=== PATIENT | male | born 1970 | race Caucasian/White ===

== ENCOUNTER 2020-03-26 08:28 | Outpatient (REF) | payer OTHER, SELFPAY | END 2020-03-26 08:29 | disposition home or self-care (01) | LOC: HO.HMGCLDS 08:28 | PROVIDERS: PCP Internal Medicine; Visit Provider Internal Medicine | DX: Z20.828 Contact with and (suspected) exposure to other viral communicable diseases (principal) | CPT/HCPCS: 87635 ==

== ENCOUNTER 2020-04-24 13:55 | Outpatient (REF) | payer OTHER, SELFPAY ==
[2020-04-24 16:58] LABS: Anion Gap 13 (12-20); Blood Urea Nitrogen 13 mg/dL (9-16); Calcium 9.2 mg/dL (8.4-10.2); Carbon Dioxide 28 mmol/L (22-29); Chloride 103 mmol/L (96-108); Estimated Glomerular Filt Rate > 60; Glucose Random 70 mg/dL (60-115); Potassium 4.7 mmol/l (3.3-5.1); Sodium 139 mmol/L (135-145)
== END 2020-04-24 13:56 | disposition home or self-care (01) ==
LOC: HO.HMGCLDS 13:55
PROVIDERS: PCP Internal Medicine; Visit Provider Internal Medicine
DX: Z00.01 Encounter for general adult medical examination with abnormal findings (principal); R79.89 Other specified abnormal findings of blood chemistry; I10 Essential (primary) hypertension
CPT/HCPCS: 80048

== ENCOUNTER 2021-01-04 11:51 | Outpatient (REF) | payer OTHER, SELFPAY ==
[2021-01-04 14:24] LABS: Alanine Aminotransferase 46 U/L (0-40); Albumin Level 4.2 g/dL (3.5-5.0); Alkaline Phosphatase 83 U/L (39-117); Anion Gap 14 (12-20); Aspartate Amino Transferase 29 U/L (5-37); Bilirubin Total 0.6 mg/dL (0.0-1.0); Blood Urea Nitrogen 12 mg/dL (9-16); Calcium 9.3 mg/dL (8.4-10.2); Carbon Dioxide 23 mmol/L (22-29); Chloride 107 mmol/L (96-108); Estimated Glomerular Filt Rate > 60; Glucose Random 150 mg/dL (60-115); Sodium 140 mmol/L (135-145); Total Protein 7.2 g/dL (6.5-8.0)
== END 2021-01-04 11:52 | disposition home or self-care (01) ==
LOC: HO.HMGCLDS 11:51
PROVIDERS: PCP Internal Medicine; Visit Provider Internal Medicine
DX: R79.89 Other specified abnormal findings of blood chemistry (principal); I10 Essential (primary) hypertension
CPT/HCPCS: 36415; 80053

== ENCOUNTER → 2021-01-22 08:41 | Outpatient (BNVA) | payer SELFPAY | PROVIDERS: PCP Internal Medicine | DX: Z02.1 Encounter for pre-employment examination (principal) ==

== ENCOUNTER 2021-02-20 11:15 | Outpatient (REF) | payer OTHER, SELFPAY ==
[2021-02-23 14:55] LABS: TS Negative Control Passed; TS Panel A 0; TS Panel B 0; TS Positive Control Passed; TSpotTB Negative (SeeBelow)
== END 2021-02-20 11:16 | disposition home or self-care (01) ==
LOC: HO.HMGCLDS 11:15
PROVIDERS: PCP Internal Medicine; Visit Provider Internal Medicine
DX: Z11.1 Encounter for screening for respiratory tuberculosis (principal)
CPT/HCPCS: 36415; 86481

== ENCOUNTER 2021-05-28 12:09 | Outpatient (REF) | payer OTHER, SELFPAY ==
[2021-05-28 14:22] LABS: Alanine Aminotransferase 62 U/L (0-40); Albumin Level 4.2 g/dL (3.5-5.0); Alkaline Phosphatase 97 U/L (39-117); Anion Gap 11 (12-20); Aspartate Amino Transferase 35 U/L (5-37); Bilirubin Total 0.4 mg/dL (0.0-1.0); Blood Urea Nitrogen 12 mg/dL (9-16); Calcium 9.6 mg/dL (8.4-10.2); Carbon Dioxide 27 mmol/L (22-29); Chloride 104 mmol/L (96-108); Estimated Glomerular Filt Rate > 60; Glucose Random 93 mg/dL (60-115); Potassium 4.2 mmol/L (3.3-5.1); Sodium 138 mmol/L (135-145); Total Protein 7.5 g/dL (6.5-8.0)
== END 2021-05-28 12:10 | disposition home or self-care (01) ==
LOC: HO.HMGCLDS 12:09
PROVIDERS: PCP Internal Medicine; Visit Provider Internal Medicine
DX: I10 Essential (primary) hypertension (principal); R79.89 Other specified abnormal findings of blood chemistry
CPT/HCPCS: 36415; 80053

== ENCOUNTER 2021-12-03 11:57 | Outpatient (REF) | payer OTHER, SELFPAY ==
[2021-12-03 13:42] LABS: MANUAL DIFF FLAG NO
[2021-12-03 13:56] LABS: Basophils Percent Auto 0.7 % (0-2); Eosinophils Absolute Auto 0.1 X10*3/uL (0.0-0.4); Eosinophils Percent Auto 1.3 % (0-4); Hemoglobin 15.5 g/dl (14.0-18.0); Imm Gran Abs Auto 0.02 X10*3/uL (0.00-0.03); Imm Gran Pct Auto 0.3 % (0.0-0.4); Lymphocytes Absolute Auto 1.9 X10*3/uL (1.2-4.9); Lymphocytes Percent Auto 31.5 % (20-40); Mean Corpuscular HGB Conc 33.7 g/dl (31.0-36.0); Mean Corpuscular Hemoglobin 30.3 pg (27.0-33.0); Mean Corpuscular Volume 89.8 fL (80.0-98.0); Mean Platelet Volume 11.1 fL (9.4-12.4); Monocytes Absolute Auto 0.4 X10*3/uL (0.1-1.2); Monocytes Percent Auto 6.6 % (2-11); Neutrophils Absolute Auto 3.5 x10*3/uL (2.0-8.3); Neutrophils Percent Auto 59.6 % (45-73); Platelet Count 289 X10*3/uL (160-400); Red Blood Count 5.12 X10*6/uL (4.60-5.80); White Blood Count 5.9 X10*3/uL (4.8-10.8)
[2021-12-03 14:06] LABS: Estimated Average Glucose 120 mg/dL; Hemoglobin A1c % 5.8 %
[2021-12-03 14:15] LABS: Alanine Aminotransferase 62 U/L (0-40); Albumin Level 4.1 g/dL (3.5-5.0); Alkaline Phosphatase 98 U/L (39-117); Anion Gap 12 (12-20); Aspartate Amino Transferase 36 U/L (5-37); Bilirubin Total 0.4 mg/dL (0.0-1.0); Blood Urea Nitrogen 11 mg/dL (9-16); Calcium 9.3 mg/dL (8.4-10.2); Carbon Dioxide 25 mmol/L (22-29); Chloride 107 mmol/L (96-108); Cholesterol 213 mg/dL; Estimated Glomerular Filt Rate > 60; Glucose Fasting 100 mg/dL (60-99); HDL Cholesterol 29 mg/dL; LDL Cholesterol Calculated 120 mg/dl; Potassium 4.5 mmol/L (3.3-5.1); Sodium 139 mmol/L (135-145); Total Protein 7.4 g/dL (6.5-8.0); Triglycerides 324 mg/dL
[2021-12-03 14:38] LABS: TSH reflex Free T4 1.23 uIU/mL (0.32-4.0)
== END 2021-12-03 11:58 | disposition home or self-care (01) ==
LOC: HO.HMGCLDS 11:57
PROVIDERS: PCP Internal Medicine; Visit Provider Internal Medicine
DX: Z00.01 Encounter for general adult medical examination with abnormal findings (principal); R94.5 Abnormal results of liver function studies; R79.89 Other specified abnormal findings of blood chemistry; I10 Essential (primary) hypertension; K42.9 Umbilical hernia without obstruction or gangrene; E66.09 Other obesity due to excess calories; R73.03 Prediabetes
CPT/HCPCS: 36415; 80053; 80061; 83036; 84443; 85025

== ENCOUNTER 2022-06-25 13:44 | Outpatient (REF) | payer OTHER, SELFPAY ==
[2022-06-25 16:53] LABS: Estimated Average Glucose 120 mg/dL; Hemoglobin A1c % 5.8 %
[2022-06-25 16:57] LABS: Alanine Aminotransferase 40 U/L (0-40); Alkaline Phosphatase 92 U/L (39-117); Anion Gap 10 (12-20); Aspartate Amino Transferase 23 U/L (5-37); Bilirubin Total 0.4 mg/dL (0.0-1.0); Blood Urea Nitrogen 14 mg/dL (9-16); Calcium 10.1 mg/dL (8.4-10.2); Carbon Dioxide 29 mmol/L (22-29); Chloride 107 mmol/L (96-108); Estimated Glomerular Filt Rate > 60; Glucose Random 131 mg/dL (60-115); Potassium 3.9 mmol/L (3.3-5.1); Sodium 142 mmol/L (135-145); Total Protein 6.9 g/dL (6.5-8.0)
== END 2022-06-25 13:45 | disposition home or self-care (01) ==
LOC: HO.HMGCLDS 13:44
PROVIDERS: PCP Internal Medicine; Visit Provider Internal Medicine
DX: E66.09 Other obesity due to excess calories (principal); R73.03 Prediabetes; I10 Essential (primary) hypertension
CPT/HCPCS: 36415; 80053; 83036

== ENCOUNTER 2022-10-29 06:53 | Day surgery (SDC) | payer OTHER, SELFPAY ==
[2022-10-27 11:17] VITALS: BMI 33.1
--- NOTE | 2022-10-28 11:47 | P.CONAN_ITS ---
Documented by User: Portia Basilio NP 10/28/22 11:48 HPI - Anesthesia Eval Consult details Narrative: 52yo M for Colonoscopy PMF Active Problems Active Problems: All Active Problems (Updated 12/03/21 @ 11:51 by Favian Ignacio MD) Pre-diabetes (Acute) Obesity due to excess calories (Acute) Umbilical hernia without obstruction and without gangrene (Acute) Encounter for general adult medical examination with abnormal findings (Acute) LFT elevation (Acute) Hypertension, essential (Acute) Past Medical History Medical History (Updated 10/29/22 @ 07:39 by Sheryl Davenport RN) History of reduction of closed fracture Hx of diarrhea Hx of fracture Hypertension, essential LFT elevation Family History Family History Father No problems noted. Mother Pancreatic cancer Sister No problems noted. Daughter No problems noted. Other Substance use disorder Surgical History Surgical History History of torn meniscus of knee Social History Social History Housing: House Alcohol intake: current Alcohol intake frequency: does not drink Patient Tobacco Use Status: Never used Tobacco e-Cigarette/Vaping Use: Never Used Second Hand Smoke Exposure: Yes (as a child) Are you DNR?: No Advance Directives: No Advance Directives Information Provided: Yes Nutrition Risks: No Nutritional Risk service: No Current occupational status: employed Cognitive needs: No Hearing needs: No Vision needs: No Meds Allergies Allergy/AdvReac Type Severity Reaction Status Date / Time No Known Allergies Allergy Verified 06/25/22 13:22 Exam Exam Date and Time: October 28, 2022 1147 Height,Weight and Vital Signs: Height 5 ft 9 in Weight 101.605 kg Assessment and Plan Assessment Anesthesia Assessment: Chart Reviewed Documented by User: Jayne Degroot MD 10/29/22 07:45 [facility] Past Medical History Medical History (Updated 10/29/22 @ 07:39 by Sheryl Davenport RN) History of reduction of closed fracture Hx of diarrhea Hx of fracture Hypertension, essential LFT elevation Family History Family History Father No problems noted. Mother Pancreatic cancer Sister No problems noted. Daughter No problems noted. Other Substance use disorder Family history of problems with anesthesia: No Surgical History Surgical History History of torn meniscus of knee History of Problems with Anesthesia: No Social History Social History Housing: House Alcohol intake: current Alcohol intake frequency: does not drink Patient Tobacco Use Status: Never used Tobacco e-Cigarette/Vaping Use: Never Used Second Hand Smoke Exposure: Yes (as a child) Are you DNR?: No Advance Directives: No Advance Directives Information Provided: Yes Nutrition Risks: No Nutritional Risk service: No Current occupational status: employed Cognitive needs: No Hearing needs: No Vision needs: No Meds Allergies Allergy/AdvReac Type Severity Reaction Status Date / Time No Known Allergies Allergy Verified 06/25/22 13:22 Exam Airway Mallampati Class: II TM Dist: >3cm Neck ROM: Full Heart: rrr Lungs: cta Assessment and Plan Assessment Anesthesia Assessment: Anesthesia Plan Discussed Final Anesthetic Review Family History of Problems with Anesthesia: No History of Problems with Anesthesia: No NPO: Yes ASA Class: II Final Preanesthetic Review: No Changes in Pt Med Stat, Meds/Allgs Chart Reviewed and Consent Obtained/Reviewed Patient Risk: Intermediate Procedure Risk: Intermediate Anesthetic Plan Anesthetic Plan: MAC: Disposition: Standard PACU
[2022-10-29 07:03] VITALS: BP 139/84; PULSE 62; RESP 20; TEMP 36.6; O2SAT 99
[2022-10-29] MEDS: Lactated Ringers 1,000 ML 100 ML IVCONT (07:34)
--- NOTE | 2022-10-29 08:44 | MHC.SHP ---
Pre-Procedural Eval Section A Date of Service: 10/29/22 Section B Chief Complaint: Encounter for screening for malignant neoplasm of Relevant Family History (Specify if Yes): No Relevant Social History: None Present Medications: see Short Stay Collaborative assessment Medical History: Significant History (History of reduction of closed fracture Hx of diarrhea Hx of fracture Hypertension, essential LFT elevation) History of Previous Operations: Relevant previous surgery/procedure and date(s) (knee surgery) Allergies: Allergies Allergy/AdvReac Type Severity Reaction Status Date / Time No Known Allergies Allergy Verified 06/25/22 13:22 Review of Systems Sugical H&P ROS: Negative: Constitution, Cardiovascular, Respiratory, Neurological, Psychiatric, Hem-Onc, Allergic/Immunologic, Gastrointestinal, Genitourinary, Musculoskeletal, Integumentary, Endocrine and Eyes/Ears/Nose/Throat Exam Surgical H&P Exam: Normal: HEENT, Normal: Heart, Normal: Lungs, Normal: Extremities, Normal: Abdomen, Normal: Skin and Normal: Neurological Plan Diagnosis/Plan: Unchanged I have reviewed the history and physical and performed a pertinent physical examination on my patient. No changes have occurred unless specified. Time Spent With Patient Time: Total time managing care of this patient today ____ minutes.
--- NOTE | 2022-10-29 08:45 | P.OP_ITS ---
Operative Note Operative Note Date of Service: 10/29/22 Narrative: Operative Information Procedure Description: Colonoscopy Indication: screening Anesthesia: MAC COLONOSCOPY Instrument: Olympus variable stiffness pediatric scope 190L Colonoscopy Monitoring: Vital signs and clinical assessment, continuous EKG monitoring, Pulse oximetry, Carbon Dioxide monitoring and blood pressure monitoring were done throughout the procedure. Colon withdrawal time was 16 minutes. Procedure: The patient was placed in the left lateral decubitis position and pre-procedure medications were administered. After a digital rectal examination of the ano-rectum, the video colonoscope was inserted into the rectum and advanced through the colon to the cecum/TI. The colonoscope was slowly withdrawn in a retrograde panoramic fashion and the colon mucosa was carefully examined including a retroflexed view of the rectum. Findings and interventions are described below. Procedure Difficulty: easy Findings: Terminal Ileum-normal, random bx taken patchy granularity to mucosa, random bx taken Cecum:normal Ascending Colon: normal Transverse Colon -normal Descending Colon:normal Sigmoid Colon: normal Rectum: Retroflexion with small internal hemorrhoids, grade I Anorectum - normal Colon preparation: Killen Bowel Preparation Scale Right colon; 2 Transverse colon: 3 Left colon; 3 (0 = Unprepared colon segment with mucosa not seen due to solid stool that cannot be cleared. 1 = Portion of mucosa of the colon segment seen, but other areas of the colon segment not well seen due to staining, residual stool and/or opaque liquid. 2 = Minor amount of residual staining, small fragments of stool and/or opaque liquid, but mucosa of colon segment seen well. 3 = Entire mucosa of colon segment seen well with no residual staining, small fragments of stool or opaque liquid) Impression and Post Procedure Diagnosis: internal hemorrhoids Plan: High fiber diet leaflet Avoid straining at stool, epsom salts and sitz bath, anusol supps or cream Repeat Colonoscopy in 10 years or earlier if clinically indicated Above findings were reviewed with the patient and relevant handouts were provided if indicated.
[2022-10-29 09:21] VITALS: BP 105/72; PULSE 72; RESP 16; TEMP 36.2; O2SAT 93
[2022-10-29 09:36] VITALS: BP 135/87; PULSE 63; RESP 16; TEMP 36.6; O2SAT 96
== END 2022-10-29 10:55 | disposition home or self-care (01) ==
PROVIDERS: PCP Internal Medicine; Visit Provider Internal Medicine Gastroenterology
PROC: 0DJD8ZZ Inspection of Lower Intestinal Tract, Via Natural or Artificial Opening Endoscopic (ICD-10-PCS; CPT 45378; principal; 2022-10-29 08:30)
DX: Z12.11 Encounter for screening for malignant neoplasm of colon (principal); K64.0 First degree hemorrhoids; I10 Essential (primary) hypertension; R73.03 Prediabetes; R79.89 Other specified abnormal findings of blood chemistry; E66.09 Other obesity due to excess calories; Z68.33 Body mass index [BMI] 33.0-33.9, adult; Z79.899 Other long term (current) drug therapy; Z77.22 Contact with and (suspected) exposure to environmental tobacco smoke (acute) (chronic)
CPT/HCPCS: 45380; 88305

== ENCOUNTER 2023-05-13 14:56 | Outpatient (AMB) | payer OTHER, SELFPAY ==
[2023-05-13 14:59] VITALS: BP 148/92; PULSE 60; O2SAT 96; BMI 34.4
--- NOTE | 2023-05-13 14:59 | A.OFFPC_ITS ---
Vital Signs 05/13/23 14:59 Height 5 ft 9 in Weight 233 lb 2 oz BMI 34.4 BP 148/92 H Blood Pressure Location Lt brachial Position Sitting Pulse 60 Pulse Source Pulse Oximeter Pulse Oximetry (%) 96 Oxygen Delivery Method Room Air Intake Visit Reasons: Hypertension Allergies No Known Allergies Allergy (Verified 05/13/23 14:59) Tobacco use date assessed: 05/13/23 Dental Screening Dental Screen Date: 05/13/23 Did you have a dental visit in the last 12 months?: No Did you have a dental problem in the last 6 months where you did not have access to dental care?: No Was dental information given to patient?: Patient has dentist HPI Hypertension HPI Details Patient is a 53-year-old male came in today for his regular follow-up appointment Patient usually come every 6 months but he missed his last appointment He is taking atenolol 50 mg, tolerating medication no side effects. Blood pressure is elevated today at 148/92 Patient says that he has been eating food that he should not full of salt. 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 Meanwhile he is to modify his diet BMI is also elevated patient need to lose weight Patient is due for labs Pre diabetes: Need better Diet controlled Complaining of chronic nasal congestion, inability to sleep at night sometimes I have told him to start using fluticasone nasal spray [id number], and see if that helps otherwise reach out to me Due for physical examination in November [facility] Medical History Hx of diarrhea Hx of fracture History of reduction of closed fracture LFT elevation Hypertension, essential Surgical History History of torn meniscus of knee Family History Father No problems noted. Mother Pancreatic cancer Sister No problems noted. Daughter No problems noted. Other Substance use disorder Social History Housing: House Alcohol intake: current Alcohol intake frequency: does not drink Patient Tobacco Use Status: Never used Tobacco e-Cigarette/Vaping Use: Never Used Second Hand Smoke Exposure: Yes (as a child) service: No Current occupational status: employed Cognitive needs: No Hearing needs: No Vision needs: No Questionnaire PHQ-9 Over the last 2 weeks, how often have you been bothered by any of the following problems? 1. Little interest or pleasure in doing things: not at all 2. Feeling down, depressed, or hopeless: not at all 3. Trouble falling or staying asleep, or sleeping too much: not at all 4. Feeling tired or having little energy: several days 5. Poor appetite or overeating: not at all 6. Feeling bad about yourself - or that you are a failure or have let yourself or your family down: not at all 7. Trouble concentrating on things, such as reading the newspaper or watching television: not at all 8. Moving or speaking so slowly that other people could have noticed. Or the opposite - being so fidgety or restless that you have been moving around a lot more than usual: not at all 9. Thoughts that you would be better off or of hurting yourself in some way: not at all Total score: 1 Depression Screening Interpretation: Negative Depression Screening Done: Yes 76327 - PHQ-9 Billing: Yes Source: Developed by Drs. Brian Santos, Byron Zepeda and colleagues, with an educational grace from [employer]. Thrive Questionnaire Date Thrive assessed: 12/03/21 AUDIT C Alcohol Use Questionnaire (AUDIT-C) 1. How often do you have a drink containing alcohol?: Monthly or less 2. How many drinks containing alcohol do you have on a typical day when you are drinking?: 1 or 2 3. How often do you have six or more drinks on one occasion?: Never Total Score: 1 Score Reviewed/Action Taken: No COLLETTE-7 AMB Questionnaire COLLETTE-7 Date COLLETTE - 7 assessed: 12/03/21 Source: Developed by Drs. Brian Santos, Byron Zepeda and colleagues, with an educational grace from [employer]. Review of Systems Const Denies chills and Denies fever(s) ENT Denies epistaxis Card Denies chest pain Resp Denies chest congestion, Denies cough and Denies hemoptysis GI Denies diarrhea and Denies nausea Skin/Breast Denies rash Neuro Reports no additional complaints Psych Reports no additional complaints Endo Reports no additional complaints Physical exam (Primary Care) Vital Signs: Last Vital Signs Pulse 60 05/13/23 14:59 BP 148/92 H 05/13/23 14:59 Pulse Ox 96 05/13/23 14:59 Oxygen Delivery Method Room Air 05/13/23 14:59 BMI result Body Mass Index 34.4 Tobacco/Smoking Status: Tobacco use Status Tobacco use date assessed 05/13/23 05/13/23 15:01 Patient Tobacco Use Status Never used Tobacco 05/13/23 15:01 e-Cigarette/Vaping Use Never Used 05/13/23 15:01 Depression Screening Interpretation: Negative Thrive Assessment: Date of Thrive Assessment Date Thrive assessed 12/03/21 05/13/23 15:01 Const General: cooperative, comfortable and no acute distress Orientation/consciousness: patient oriented x3 HENMT Other: Present nasal congestion both side Head: Yes normocephalic Eyes General: appearance normal, both eyes and all related structures Neck Neck: Yes supple Resp Effort & Inspection: normal respiratory effort, no cough and no stridor Cardio Rhythm: regular rhythm Heart sounds: S1 normal heart sound present and S2 normal heart sound present Skin General skin exam: turgor normal Neuro General: patient oriented x3, tone normal and moves all extremities Extrem Right lower extremity: no edema Left lower extremity: no edema Assessment and Plan Assessment & Plan (1) Hypertension, essential: Code(s): I10 - Essential (primary) hypertension (2) LFT elevation: Code(s): R79.89 - Other specified abnormal findings of blood chemistry (3) Obesity due to excess calories: Code(s): E66.09 - Other obesity due to excess calories Qualifiers: Body mass index: BMI 34.0-34.9 Obesity classification: adult class 1 (BMI 30 - 34.9) Serious obesity comorbidity presence: with serious comorbidity Qualified Code(s): E66.09 - Other obesity due to excess calories; Z68.34 - Body mass index [BMI] 34.0-34.9, adult (4) Pre-diabetes: Code(s): R73.03 - Prediabetes (5) Chronic nasal congestion: Code(s): R09.81 - Nasal congestion Plan Patient is a 53-year-old male came in today for his regular follow-up appointment Patient usually come every 6 months but he missed his last appointment He is taking atenolol 50 mg, tolerating medication no side effects. Blood pressure is elevated today at 148/92 Patient says that he has been eating food that he should not full of salt. 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 Meanwhile he is to modify his diet BMI is also elevated patient need to lose weight Patient is due for labs Pre diabetes: Need better Diet controlled Complaining of chronic nasal congestion, inability to sleep at night sometimes I have told him to start using fluticasone nasal spray [id number], and see if that helps otherwise reach out to me Due for physical examination in November Orders: Orders Complete Blood Count Auto Diff Today E66.09 - Other obesity due to excess calories, I10 - Essential (primary) hypertension, R73.03 - Prediabetes, R79.89 - Other specified abnormal findings of blood chemistry Comprehensive Met. Panel Today E66.09 - Other obesity due to excess calories, I10 - Essential (primary) hypertension, R73.03 - Prediabetes, R79.89 - Other specified abnormal findings of blood chemistry LDL Cholesterol Direct Today E66.09 - Other obesity due to excess calories, I10 - Essential (primary) hypertension, R73.03 - Prediabetes, R79.89 - Other specified abnormal findings of blood chemistry Coding Level of Care Code Est Pt Level 4 (53944) Diagnoses Hypertension, essential I10 LFT elevation R79.89 Class 1 obesity due to excess calories with serious comorbidity and body mass index (BMI) of 34.0 to 34.9 in adult E66.09; Z68.34 Body mass index: BMI 34.0-34.9 Obesity classification: adult class 1 (BMI 30 - 34.9) Serious obesity comorbidity presence: with serious comorbidity Pre-diabetes R73.03 Chronic nasal congestion R09.81
== END 2023-05-13 17:48 | disposition home or self-care (01) ==
PROVIDERS: PCP Internal Medicine; Visit Provider Internal Medicine
DX: I10 Essential (primary) hypertension (principal); R79.89 Other specified abnormal findings of blood chemistry; E66.09 Other obesity due to excess calories; Z68.34 Body mass index [BMI] 34.0-34.9, adult; R73.03 Prediabetes; R09.81 Nasal congestion
CPT/HCPCS: 99214

== ENCOUNTER 2023-05-13 15:17 | Outpatient (REF) | payer OTHER, SELFPAY ==
[2023-05-13 16:07] LABS: MANUAL DIFF FLAG NO
[2023-05-13 16:24] LABS: Basophils Absolute Auto 0.1 X10*3/uL (0.0-0.2); Basophils Percent Auto 0.8 % (0-2); Eosinophils Absolute Auto 0.1 X10*3/uL (0.0-0.4); Eosinophils Percent Auto 0.9 % (0-4); Hemoglobin 16.6 g/dl (14.0-18.0); Imm Gran Abs Auto 0.03 X10*3/uL (0.00-0.03); Imm Gran Pct Auto 0.4 % (0.0-0.4); Lymphocytes Absolute Auto 2.4 X10*3/uL (1.2-4.9); Lymphocytes Percent Auto 28.9 % (20-40); Mean Corpuscular HGB Conc 33.9 g/dl (31.0-36.0); Mean Corpuscular Hemoglobin 30.7 pg (27.0-33.0); Mean Corpuscular Volume 90.7 fL (80.0-98.0); Mean Platelet Volume 10.7 fL (9.4-12.4); Monocytes Absolute Auto 0.5 X10*3/uL (0.1-1.2); Neutrophils Absolute Auto 5.3 x10*3/uL (2.0-8.3); Platelet Count 288 X10*3/uL (160-400); Red Cell Distribution Width 12.8 % (11.0-16.0); White Blood Count 8.4 X10*3/uL (4.8-10.8)
[2023-05-13 16:49] LABS: Alanine Aminotransferase 59 U/L (0-40); Albumin Level 4.4 g/dL (3.5-5.0); Alkaline Phosphatase 95 U/L (39-117); Anion Gap 11 (12-20); Aspartate Amino Transferase 38 U/L (5-37); Bilirubin Total 0.6 mg/dL (0.0-1.0); Blood Urea Nitrogen 12 mg/dL (9-16); Calcium 9.4 mg/dL (8.4-10.2); Carbon Dioxide 29 mmol/L (22-29); Chloride 103 mmol/L (96-108); Estimated Glomerular Filt Rate > 60; Glucose Random 72 mg/dL (60-115); Potassium 3.6 mmol/L (3.3-5.1); Sodium 139 mmol/L (135-145); Total Protein 7.8 g/dL (6.5-8.0)
[2023-05-15 08:49] LABS: LDL Cholesterol Direct 153 mg/dL (<100)
== END 2023-05-13 15:18 | disposition home or self-care (01) ==
LOC: HO.HMGCLDS 15:17
PROVIDERS: PCP Internal Medicine; Visit Provider Internal Medicine
DX: I10 Essential (primary) hypertension (principal); R79.89 Other specified abnormal findings of blood chemistry; E66.09 Other obesity due to excess calories; R73.03 Prediabetes
CPT/HCPCS: 36415; 80053; 83721; 85025

== ENCOUNTER 2023-10-28 12:30 | Outpatient (AMB) | payer OTHER, SELFPAY ==
--- NOTE | 2023-10-28 12:41 | MHC.PC.OV ---
Vital Signs 10/28/23 12:42 Height 5 ft 9 in Weight 236 lb BMI 34.8 BP 122/82 Blood Pressure Location Lt brachial Position Sitting Pulse 58 Pulse Source Pulse Oximeter Pulse Oximetry (%) 98 Oxygen Delivery Method Room Air Intake Visit Reasons: Missed appointment annual exam 10/06 Allergies No Known Allergies Allergy (Verified 10/28/23 12:42) Medication List - Last Reconciled 10/28/23 by Favian Ignacio MD atenolol 50 mg PO DAILY 90 days Tobacco use date assessed: 10/28/23 Dental Screening Dental Screen Date: 10/28/23 Did you have a dental visit in the last 12 months?: No Did you have a dental problem in the last 6 months where you did not have access to dental care?: No Was dental information given to patient?: No HPI Missed appointment annual exam 10/06 HPI Details Patient is a 53-year-old gentleman came in today for physical examination Patient says that he has been having chest discomfort off and on which last only few seconds We did the EKG today which showed bradycardia with heart rate of 56 and biphasic T-waves in V1 V2 and V3 Q-wave in lead 3 and AVF I have placed a referral for him to see retail special event associate Only medication patient is taking his atenolol 50 mg for hypertension , blood pressure is well-controlled today But it has been running 130s/90s at work Patient is prediabetic Last time he had labs he also has mild elevation in LFTs Due for labs Colonoscopy was October of last year LDL is also elevated at 153 patient need to lose weight Follow-up 6 months for hypertension and 1 year for physical exam PFSH Medical History Hx of diarrhea Hx of fracture History of reduction of closed fracture LFT elevation Hypertension, essential Surgical History History of torn meniscus of knee Family History Father No problems noted. Mother Pancreatic cancer Sister No problems noted. Daughter No problems noted. Other Substance use disorder Social History Housing: House Alcohol intake: current Alcohol intake frequency: does not drink Patient Tobacco Use Status: Never used Tobacco e-Cigarette/Vaping Use: Never Used Second Hand Smoke Exposure: Yes (as a child) service: No Current occupational status: employed Cognitive needs: No Hearing needs: No Vision needs: No Questionnaire PHQ-9 Over the last 2 weeks, how often have you been bothered by any of the following problems? 1. Little interest or pleasure in doing things: not at all 2. Feeling down, depressed, or hopeless: not at all 3. Trouble falling or staying asleep, or sleeping too much: not at all 4. Feeling tired or having little energy: not at all 5. Poor appetite or overeating: not at all 6. Feeling bad about yourself - or that you are a failure or have let yourself or your family down: not at all 7. Trouble concentrating on things, such as reading the newspaper or watching television: not at all 8. Moving or speaking so slowly that other people could have noticed. Or the opposite - being so fidgety or restless that you have been moving around a lot more than usual: not at all 9. Thoughts that you would be better off or of hurting yourself in some way: not at all Total score: 0 Depression Screening Interpretation: Negative Depression Screening Done: Yes 00353 - PHQ-9 Billing: Yes Source: Developed by Drs. Brian Santos, Romana Carranza, Byron Kim and colleagues, with an educational grace from [employer]. Thrive Questionnaire Date Thrive assessed: 10/28/23 I am a: Patient What is your living situation today?: I have a steady place to live Within the past 12 months, did the food you bought not last and you didn't have the money to get more?: Never true Within the past 12 months, did you worry whether your food would run out before you got money to buy more?: Never true Do you have trouble paying for medicines?: No Do you have trouble getting transportation to medical appointments?: No Do you have trouble paying your heating and electricity bill?: No Do you have trouble taking care of your child, family member or friend?: No Do you have trouble with day-to-day activities such as bathing, preparing meals, shopping, managing finances, etc.?: No Are you currently unemployed and looking for a job?: No Are you interested in more education?: No Please select the resources that you would like help with: None Currently or been in a relationship where the following occur: no concerns reported THRIVE Score: 0 AUDIT C Alcohol Use Questionnaire (AUDIT-C) 1. How often do you have a drink containing alcohol?: Never 3. How often do you have six or more drinks on one occasion?: Never Total Score: 0 Score Reviewed/Action Taken: No COLLETTE-7 AMB Questionnaire COLLETTE-7 Date COLLETTE - 7 assessed: 10/28/23 Feeling nervous, anxious, or on edge: 0 = Not at all Not being able to stop or control worryin = Not at all Worrying too much about different things: 0 = Not at all Trouble relaxin = Not at all Being so restless that it is hard to sit still: 0 = Not at all Becoming easily annoyed or irritable: 0 = Not at all Feeling afraid as if something awful might happen: 0 = Not at all Total COLLETTE-7 score (0-4 normal; 5-9 mild; 10-14 moderate; 15-21 severe): 0 Source: Developed by Drs. Brian Santos, Romana Carranza, Byron Kim and colleagues, with an educational grace from [employer]. COLLETTE-7 Assessment Billing COLLETTE-7 Assessment Tool: COLLETTE-7 Assessment 15265 Review of Systems Const Denies chills, Denies fever(s) and Denies headache(s) Eyes Denies blurry vision ENT Denies headache(s), Denies nasal discharge, Denies nasal obstruction, Denies odynophagia and Denies sinus pain Card Denies chest pain at rest and Denies chest pain with activity Resp Denies cough and Denies hemoptysis GI Denies diarrhea, Denies odynophagia, Denies vomiting and Denies hematemesis Reports as per HPI Musc Denies abnormal gait Skin/Breast Reports as per HPI Neuro Denies Neuro-related abnormal movements, Denies Abnormal speech present, Denies abnormal gait, Denies headache(s) and Denies Sensory deficit (Neuro) Psych Denies mood swings and Denies paranoia Endo Reports as per HPI Bryan/Lymph Reports as per HPI Aller/Immun Reports as per HPI Physical exam (Primary Care) Vital Signs: Last Vital Signs Pulse 58 10/28/23 12:42 BP 122/82 10/28/23 12:42 Pulse Ox 98 10/28/23 12:42 Oxygen Delivery Method Room Air 10/28/23 12:42 BMI result Body Mass Index 34.8 Tobacco/Smoking Status: Tobacco use Status Tobacco use date assessed 10/28/23 10/28/23 12:44 Patient Tobacco Use Status Never used Tobacco 10/28/23 12:42 e-Cigarette/Vaping Use Never Used 10/28/23 12:42 PHQ-9: PHQ-9 Score PHQ-9: Total score 0 10/28/23 13:12 Depression Screening Interpretation: Negative Thrive Assessment: Date of Thrive Assessment Date Thrive assessed 10/28/23 10/28/23 13:12 Currently or been in a relationship where the following occur: no concerns reported Const General: cooperative, comfortable and no acute distress Orientation/consciousness: patient oriented x3 HENMT Head: Yes normocephalic and Yes atraumatic Eyes General: appearance normal, both eyes and all related structures Pupils: Equal, round and reactive pupils present EOM: EOMs intact bilaterally Neck Neck: Yes supple and No lymphadenopathy Thyroid: Thyroid normal Lymphatic: no lymphadenopathy noted Resp Effort & Inspection: normal respiratory effort and able to speak in complete sentences Auscultation: clear to auscultation bilaterally Cardio Heart sounds: S1 normal heart sound present and S2 normal heart sound present GI Palpation (GI): Soft to palpation and nontender Auscultation: normal bowel sounds General: Yes no CVA tenderness Back/Spine/Pelvis Back: no CVA tenderness Skin General skin exam: elasticity normal and turgor normal Neuro General: patient oriented x3 and gait normal Cranial nerves: Yes Equal, round and reactive pupils present Speech: No Abnormal speech present Sensory Exam: No Sensory deficit (Neuro) Coordination: tandem gait normal and Romberg test negative Extrem General: Yes normal exam except as noted and No edema Office Procedures EKG [id number], Complete Assessment and Plan Assessment & Plan (1) Encounter for general adult medical examination with abnormal findings: Code(s): Z00.01 - Encounter for general adult medical examination with abnormal findings (2) Chest pain: Code(s): R07.9 - Chest pain, unspecified Qualifiers: Chest pain type: unspecified Qualified Code(s): R07.9 - Chest pain, unspecified (3) LFT elevation: Code(s): R79.89 - Other specified abnormal findings of blood chemistry (4) Hypertension, essential: Code(s): I10 - Essential (primary) hypertension (5) Pre-diabetes: Code(s): R73.03 - Prediabetes (6) Obesity due to excess calories: Code(s): E66.09 - Other obesity due to excess calories Qualifiers: Body mass index: BMI 34.0-34.9 Obesity classification: adult class 1 (BMI 30 - 34.9) Serious obesity comorbidity presence: with serious comorbidity Qualified Code(s): E66.09 - Other obesity due to excess calories; Z68.34 - Body mass index [BMI] 34.0-34.9, adult (7) Bradycardia: Code(s): R00.1 - Bradycardia, unspecified (8) Electrocardiogram showing T wave abnormalities: Code(s): R94.31 - Abnormal electrocardiogram [ECG] [EKG] Plan Patient is a 53-year-old gentleman came in today for physical examination Patient says that he has been having chest discomfort off and on which last only few seconds We did the EKG today which showed bradycardia with heart rate of 56 and biphasic T-waves in V1 V2 and V3 Q-wave in lead 3 and AVF I have placed a referral for him to see retail special event associate Only medication patient is taking his atenolol 50 mg for hypertension , blood pressure is well-controlled today But it has been running 130s/90s at work Patient is prediabetic Last time he had labs he also has mild elevation in LFTs Due for labs Colonoscopy was October of last year LDL is also elevated at 153 patient need to lose weight Follow-up 6 months for hypertension and 1 year for physical exam Orders: Orders Complete Blood Count Auto Diff Today E66.09 - Other obesity due to excess calories, I10 - Essential (primary) hypertension, R73.03 - Prediabetes, R79.89 - Other specified abnormal findings of blood chemistry, Z00.01 - Encounter for general adult medical examination with abnormal findings, Z68.34 - Body mass index [BMI] 34.0-34.9, adult TSH reflex Free T4 Today E66.09 - Other obesity due to excess calories, I10 - Essential (primary) hypertension, R73.03 - Prediabetes, R79.89 - Other specified abnormal findings of blood chemistry, Z00.01 - Encounter for general adult medical examination with abnormal findings, Z68.34 - Body mass index [BMI] 34.0-34.9, adult Hemoglobin A1c Today E66.09 - Other obesity due to excess calories, I10 - Essential (primary) hypertension, R73.03 - Prediabetes, R79.89 - Other specified abnormal findings of blood chemistry, Z00.01 - Encounter for general adult medical examination with abnormal findings, Z68.34 - Body mass index [BMI] 34.0-34.9, adult AMB EKG-In Office Today R07.9 - Chest pain, unspecified Comprehensive Met. Panel Today E66.09 - Other obesity due to excess calories, I10 - Essential (primary) hypertension, R73.03 - Prediabetes, R79.89 - Other specified abnormal findings of blood chemistry, Z00.01 - Encounter for general adult medical examination with abnormal findings, Z68.34 - Body mass index [BMI] 34.0-34.9, adult LDL Cholesterol Direct Today E66.09 - Other obesity due to excess calories, I10 - Essential (primary) hypertension, R73.03 - Prediabetes, R79.89 - Other specified abnormal findings of blood chemistry, Z00.01 - Encounter for general adult medical examination with abnormal findings, Z68.34 - Body mass index [BMI] 34.0-34.9, adult Referrals Cardiology Referral I10 - Essential (primary) hypertension, R00.1 - Bradycardia, unspecified, R07.9 - Chest pain, unspecified, R94.31 - Abnormal electrocardiogram [ECG] [EKG] Coding Level of Care Code Est Pt Level 4 (23340) Est Pt Prev Care 40-64y(55860) Diagnoses Encounter for general adult medical examination with abnormal findings Z00.01 Chest pain, unspecified type R07.9 Chest pain type: unspecified LFT elevation R79.89 Hypertension, essential I10 Pre-diabetes R73.03 Class 1 obesity due to excess calories with serious comorbidity and body mass index (BMI) of 34.0 to 34.9 in adult E66.09; Z68.34 Body mass index: BMI 34.0-34.9 Obesity classification: adult class 1 (BMI 30 - 34.9) Serious obesity comorbidity presence: with serious comorbidity Bradycardia R00.1 Electrocardiogram showing T wave abnormalities R94.31 CPT Codes EKG - CPT: 92224-[id number], Complete ([id number]) Additional Codes COLLETTE-7 Assessment Billing - COLLETTE-7 Assessment Tool: COLLETTE-7 Assessment 30515 ([id number])
[2023-10-28 12:42] VITALS: BP 122/82; PULSE 58; O2SAT 98; BMI 34.8
== END 2023-10-28 13:05 | disposition home or self-care (01) ==
PROVIDERS: PCP Internal Medicine; Visit Provider Internal Medicine
DX: Z00.01 Encounter for general adult medical examination with abnormal findings (principal); R07.9 Chest pain, unspecified; R79.89 Other specified abnormal findings of blood chemistry; I10 Essential (primary) hypertension; R73.03 Prediabetes; E66.09 Other obesity due to excess calories; Z68.34 Body mass index [BMI] 34.0-34.9, adult; R00.1 Bradycardia, unspecified; R94.31 Abnormal electrocardiogram [ECG] [EKG]
CPT/HCPCS: 93000; 99214; 99396

== ENCOUNTER 2023-10-28 13:13 | Outpatient (REF) | payer OTHER, SELFPAY ==
[2023-10-28 16:12] LABS: MANUAL DIFF FLAG NO
[2023-10-28 16:18] LABS: Basophils Absolute Auto 0.1 X10*3/uL (0.0-0.2); Eosinophils Absolute Auto 0.1 X10*3/uL (0.0-0.4); Eosinophils Percent Auto 1.2 % (0-4); Hematocrit 47.2 % (42.0-52.0); Hemoglobin 16.1 g/dl (14.0-18.0); Imm Gran Abs Auto 0.03 X10*3/uL (0.00-0.03); Imm Gran Pct Auto 0.4 % (0.0-0.4); Lymphocytes Absolute Auto 2.3 X10*3/uL (1.2-4.9); Lymphocytes Percent Auto 30.8 % (20-40); Mean Corpuscular HGB Conc 34.1 g/dl (31.0-36.0); Mean Corpuscular Hemoglobin 30.6 pg (27.0-33.0); Mean Corpuscular Volume 89.7 fL (80.0-98.0); Mean Platelet Volume 10.8 fL (9.4-12.4); Monocytes Absolute Auto 0.5 X10*3/uL (0.1-1.2); Monocytes Percent Auto 6.3 % (2-11); Neutrophils Absolute Auto 4.4 x10*3/uL (2.0-8.3); Neutrophils Percent Auto 60.3 % (45-73); Platelet Count 313 X10*3/uL (160-400); Red Blood Count 5.26 X10*6/uL (4.60-5.80); Red Cell Distribution Width 12.9 % (11.0-16.0); White Blood Count 7.3 X10*3/uL (4.8-10.8)
[2023-10-28 16:24] LABS: Estimated Average Glucose 123 mg/dL; Hemoglobin A1c % 5.9 % (<6.0)
[2023-10-28 16:34] LABS: Alanine Aminotransferase 56 U/L (0-40); Albumin Level 4.2 g/dL (3.5-5.0); Alkaline Phosphatase 97 U/L (39-117); Anion Gap 12 (12-20); Aspartate Amino Transferase 34 U/L (5-37); Bilirubin Total 0.6 mg/dL (0.0-1.0); Blood Urea Nitrogen 11 mg/dL (9-16); Carbon Dioxide 24 mmol/L (22-29); Chloride 106 mmol/L (96-108); Estimated Glomerular Filt Rate > 60; Glucose Random 96 mg/dL (60-115); Potassium 3.9 mmol/L (3.3-5.1); Sodium 138 mmol/L (135-145); Total Protein 7.4 g/dL (6.5-8.0)
[2023-10-29 19:38] LABS: LDL Cholesterol Direct 139 mg/dL (<100)
== END 2023-10-28 13:14 | disposition home or self-care (01) ==
LOC: HO.HMGCLDS 13:13
PROVIDERS: PCP Internal Medicine; Visit Provider Internal Medicine
DX: Z00.01 Encounter for general adult medical examination with abnormal findings (principal); R79.89 Other specified abnormal findings of blood chemistry; I10 Essential (primary) hypertension; R73.03 Prediabetes; E66.09 Other obesity due to excess calories; Z68.34 Body mass index [BMI] 34.0-34.9, adult
CPT/HCPCS: 36415; 80053; 83036; 83721; 84443; 85025

== ENCOUNTER 2024-02-09 12:57 | Outpatient (AMB) | payer OTHER, SELFPAY ==
--- NOTE | 2024-02-09 13:12 | MHC.OFFVIS ---
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 Patient had EKG done recently which showed inferior Q-waves and nonspecific T-wave changes and was referred for further cardiac evaluation. Did EKG today which shows no Q-waves in the inferior leads and shows isolated PACs. He has no symptoms. He said he maintains activity level without any symptoms exertional chest pain or shortness of breath. Takes all his medications regularly. Up to few years ago he was a runner but has not been able to run and has gained some weight. He has some arthritis issues in his right knee. He will monitor start some increased cardio aerobic exercises near future. Denies any prolonged palpitation irregular heartbeat. No lightheadedness, syncope. No exertional chest pain. No heart failure symptoms. [facility] Medical History Hx of diarrhea Hx of fracture History of reduction of closed fracture LFT elevation Hypertension, essential Surgical History History of torn meniscus of knee Family History Father No problems noted. Mother Pancreatic cancer Sister No problems noted. Daughter No problems noted. Other Substance use disorder Social History Housing: House Alcohol intake: current Alcohol intake frequency: does not drink Patient Tobacco Use Status: Never used Tobacco e-Cigarette/Vaping Use: Never Used Second Hand Smoke Exposure: Yes (as a child) service: No Current occupational status: employed Cognitive needs: No Hearing needs: No Vision needs: No Review of Systems Const Denies chills, Denies daytime sleepiness, Denies fatigue, Denies fever(s), Denies frequent falls, Denies poor appetite, Denies snoring, Denies stops breathing during sleep, Denies weakness, Denies weight gain and Denies weight loss Eyes Denies loss of vision ENT Denies dizziness and Denies hearing loss Card Denies chest pain, Denies claudication, Denies leg edema, Denies lightheadedness, Denies palpitations, Denies dyspnea, Denies dyspnea on exertion and Denies orthopnea Resp Denies cough, Denies excessive phlegm production, Denies dyspnea, Denies dyspnea on exertion, Denies snoring and Denies wheezing GI Denies abdominal pain, Denies hematochezia, Denies change in bowel habits, Denies nausea and Denies vomiting Denies dysuria and Denies urinary frequency Musc Denies arthralgias, Denies muscle weakness, Denies numbness and Denies other (frequent falls) Skin/Breast Denies nail changes and Denies rash Neuro Denies Abnormal speech present, Denies dizziness, Denies frequent falls, Denies loss of vision, Denies memory loss, Denies numbness and Denies weakness Psych Denies depression and Denies memory loss Endo Denies fatigue and Denies palpitations Bryan/Lymph Reports easy bruising and Reports other (anemia) Aller/Immun Denies wheezing Physical Exam Vital Signs: Last Vital Signs Pulse 57 02/09/24 13:17 BP 120/82 02/09/24 13:17 BMI result Body Mass Index 34.8 Const General: cooperative, comfortable, no acute distress, alert, awake and Physically active Nutritional Appearance: obese Orientation/consciousness: patient oriented x3 Limitations: no limitations HEENT Head: Yes normocephalic and Yes atraumatic Neck Neck: Yes trachea midline, Yes supple and Yes no JVD Resp Effort & Inspection: normal respiratory effort Auscultation: clear to auscultation bilaterally Cardio Jugular venous distension: no JVD Palpation: normal PMI Rate: regular rate Rhythm: regular rhythm Heart sounds: S1 normal heart sound present, S2 normal heart sound present, no click, no gallops, no murmurs and no rubs GI Auscultation: normal bowel sounds Skin General skin exam: no rashes or lesions noted Neuro General: patient oriented x3 and no focal motor deficits Speech: No Abnormal speech present Extrem General: Yes no clubbing, cyanosis or edema Psych Appearance: grossly normal Office Procedures EKG Details: EKG shows normal sinus rhythm with PACs [id number], Complete Assessment & Plan Assessment & Plan (1) Hypertension, essential: Code(s): I10 - Essential (primary) hypertension Category: Medical Plan: Hypertension which is currently well controlled. No symptoms related to it. Would suggest an echocardiogram to assess for end-organ damage to assess for hypertensive heart disease and LV systolic and diastolic function. Advised to continue maintain activity level as tolerated. Would suggest further screening for coronary atherosclerosis with a coronary calcium score given his multiple risk factors including hypertension, hyperlipidemia, borderline diabetes as well as obesity. Importance of good blood pressure control was discussed. He understands and agrees. Further treatment based on the findings. (2) PAC (premature atrial contraction): Code(s): I49.1 - Atrial premature depolarization Category: Medical Plan: Isolated PACs without any symptoms. Continue atenolol therapy. Avoidance of stimulants was discussed. No specific therapy recommended. Will follow up in the clinic if need be. Thank you for allowing me to partake in his care Orders: Orders CT Coronary Calcium Score 1 Week I10 - Essential (primary) hypertension CA echo transthoracic complete Today I10 - Essential (primary) hypertension Coding Level of Care Code New Pt Level 4 (77411) Diagnoses Hypertension, essential I10 PAC (premature atrial contraction) I49.1 CPT Codes EKG - CPT: 88984-[id number], Complete ([id number])
[2024-02-09 13:17] VITALS: BP 120/82; PULSE 57; BMI 34.8
== END 2024-02-09 13:46 | disposition home or self-care (01) ==
PROVIDERS: PCP Internal Medicine; Visit Provider Internal Medicine Cardiovascular Disease
DX: I10 Essential (primary) hypertension (principal); I49.1 Atrial premature depolarization
CPT/HCPCS: 93010; 99204

== ENCOUNTER → 2024-02-09 12:57 | Outpatient (BNVA) | payer OTHER, SELFPAY | PROVIDERS: PCP Internal Medicine; Visit Provider Internal Medicine Cardiovascular Disease | DX: I10 Essential (primary) hypertension (principal); I49.1 Atrial premature depolarization; Z79.899 Other long term (current) drug therapy | CPT/HCPCS: 93005 ==

== ENCOUNTER → 2024-03-09 11:06 | Outpatient (REF) | payer OTHER, SELFPAY ==
--- NOTE | 2024-03-09 11:08 | CA_ITS ---
Transthoracic Echocardiogram Patient (Last, First, Middle): Cody Cardoso M Gender: Male Date of : 1970 Age: 53 Procedure Date: 03/09/2024 Procedure Type: Transthoracic Echocardiogram Location: OP Height: 175.26 cm Weight: 102.97 kg BSA: 2.18 m2 Heart Rate: 67 bpm BP: 134 / 72 mmHg [employer] Worker: ADDY Referring MD: Faheem Ram MD Symptoms: I10 - Essential (primary) hypertension Study Quality: Adequate ECG Rhythm: Sinus Conclusions: - The left ventricular systolic function is normal. The visually estimated ejection fraction is between 55-60%. - There is moderate septal asymmetric hypertrophy. - No obvious valvular pathology seen on this study. Findings Left Ventricle Normal left ventricular cavity size. There is normal left ventricular wall thickness. The left ventricular systolic function is normal. The visually estimated ejection fraction is between 55-60%. Diastolic function is normal for age. There is moderate septal asymmetric hypertrophy. Right Ventricle Mildly increased right ventricular cavity size. There is low normal right ventricular systolic function. Atria Both atria are normal in size. Aortic Valve There is a normal trileaflet aortic valve. There is no aortic valve stenosis. There is no aortic valve regurgitation. Mitral Valve There is mild mitral annular calcification. There is no mitral valve regurgitation. There is no mitral valve stenosis. Pulmonic Valve The pulmonic valve is likely normal. Tricuspid Valve There is mild tricuspid valve regurgitation. There is no evidence of pulmonary hypertension. Great Vessels The asc aorta and aortic arch are normal in size. Venous The inferior vena cava is normal in size and collapses greater than 50% with inspiration. Pericardium/Pleural There is no evidence of pericardial effusion. Prior Study Comparison No significant change compared to prior study dated: 02/08/2019. Recommendations, Care & Conclusions No obvious valvular pathology seen on this study. Measurements 2D Linear Measurements IVSd: 1.33 0.6-0.9/0.6-1.0 cm LVIDd: 5.01 3.9-5.3/4.2-5.9 cm LVIDd Index: 2.30 2.4-3.2/2.2-3.1 cm/m2 LVIDs: 3.24 2.0-3.6 cm LVPWd: 0.82 0.7-1.1 cm LA Diam: 3.20 2.7-3.8/3.0-4.0 cm LAIDs Index: 1.47 1.5-2.3 cm/m2 LV Mass: 250.96 67-162/88-224 g LV Mass Index: 115.12 43-95/49-115 g/m2 LVOT Diam: 2.20 3.0+(-)1.3 cm 2D Systolic Function EF 4C: 51.90 >55% EF 2C: 50.10 >55% EF BiP: 50.40 >55% Mitral Valve MV Pk E: 0.60 MV PK A: 0.72 MV Decel Time: 176.00 E/A: 0.80 E'Lateral: 6.64 E'Medial: 5.00 E/E' Med: 11.90 E/E' Lat: 9.00 PHT: 52.00 MVA PHT: 4.23 Decel Pershing: 3.38 Aortic Valve AoV Pk Matti: 1.04 AoV Pk Grad: 4.00 VAISHALI: 3.06 LVOT LVOT Pk Matti: 0.89 LVOT Mn Matti: 0.66 LVOT VTI: 0.20 LVOT Pk Grad: 3.00 LVOT Mn Grad: 2.00 LVOT Diam: 2.20 LVOT Area: 3.80 Diastolic Function MV Pk E: 0.60 MV Pk A: 0.72 E/A: 0.80 E'Medial: 5.00 E/E' Med: 11.90 E' Laterial: 6.64 E/E' Lat: 9.00 Right Ventricle TVS' Matti: 11.30 Tricuspid Valve TR Pk Matti: 2.20 TR Pk Grad: 19.00 RA Press: 3.00 RVSP: 22.00 Great Vessels Aorta Sinus of Valsalva: 3.80 2.0-3.5 cm Ao Asc: 3.40 2.1-3.4 cm Ao Arch: 2.90 Pulmonary Valve PV Pk Matti: 1.08 Peak PV Grad: 5.00 Updated in Other Vendor System with Status of Final Tavon Quesada MD electronically signed on 03/11/2024 12:12:40 PM with status of Final
== END ==
LOC: HO.CARD 11:06
PROVIDERS: PCP Internal Medicine; Visit Provider Internal Medicine Cardiovascular Disease
DX: I10 Essential (primary) hypertension (principal)
CPT/HCPCS: 93306

== ENCOUNTER → 2024-03-09 11:08 | Outpatient (BNV) | payer OTHER, SELFPAY | PROVIDERS: PCP Internal Medicine; Visit Provider Internal Medicine | DX: I36.1 Nonrheumatic tricuspid (valve) insufficiency (principal); I42.2 Other hypertrophic cardiomyopathy; I34.81 Nonrheumatic mitral (valve) annulus calcification | CPT/HCPCS: 93306 ==

== ENCOUNTER 2024-05-03 09:51 | Outpatient (REF) | payer OTHER, SELFPAY ==
[2024-05-03 14:09] LABS: Estimated Average Glucose 117 mg/dL; Hemoglobin A1C 159.9578 umol/L; Hemoglobin A1c % 5.7 % (<6.0); Total Hemoglobin (HGBA1C) 4171.6874 umol/L
[2024-05-03 14:19] LABS: Alanine Aminotransferase 39 U/L (0-40); Albumin Level 4.1 g/dL (3.5-5.0); Alkaline Phosphatase 97 U/L (39-117); Anion Gap 9 (12-20); Aspartate Amino Transferase 29 U/L (5-37); Bilirubin Total 0.5 mg/dL (0.0-1.0); Blood Urea Nitrogen 11 mg/dL (9-16); Calcium 8.7 mg/dL (8.4-10.2); Carbon Dioxide 26 mmol/L (22-29); Chloride 108 mmol/L (96-108); Estimated Glomerular Filt Rate > 60; Glucose Random 116 mg/dL (60-115); Potassium 3.6 mmol/L (3.3-5.1); Sodium 139 mmol/L (135-145); Total Protein 7.2 g/dL (6.5-8.0)
== END 2024-05-03 09:52 | disposition home or self-care (01) ==
LOC: HO.HMGCLDS 09:51
PROVIDERS: PCP Internal Medicine; Visit Provider Internal Medicine
DX: R73.03 Prediabetes (principal); I10 Essential (primary) hypertension; R79.89 Other specified abnormal findings of blood chemistry
CPT/HCPCS: 36415; 80053; 83036; 96127

== ENCOUNTER 2024-05-03 09:51 | Outpatient (AMB) | payer OTHER, SELFPAY ==
[2024-05-03 09:53] VITALS: BP 126/84; PULSE 62; O2SAT 96; BMI 33.4
--- NOTE | 2024-05-03 09:53 | A.OFFPC_ITS ---
Vital Signs 05/03/24 09:53 Height 5 ft 9 in Weight 226 lb 2 oz BMI 33.4 BP 126/84 Blood Pressure Location Lt brachial Position Sitting Pulse 62 Pulse Source Pulse Oximeter Pulse Oximetry (%) 96 Oxygen Delivery Method Room Air Intake Visit Reasons: 6 thu f/u Allergies No Known Allergies Allergy (Verified 05/03/24 09:59) Medication List - Last Reconciled 05/03/24 by Favian Ignacio MD atenolol 50 mg PO DAILY 90 days Tobacco use date assessed: 05/03/24 Dental Screening Dental Screen Date: 05/03/24 Did you have a dental visit in the last 12 months?: Yes Did you have a dental problem in the last 6 months where you did not have access to dental care?: No Was dental information given to patient?: Patient has dentist HPI Thu f/u HPI Details The patient is a 54-year-old male presenting for a six-month follow-up visit. He has a history of hypertension, which is well-controlled with Adenolol 50 mg. He reports no side effects from the medication. The patient has documented prediabetes and elevated liver enzymes, which are stable. He has managed to lose weight, reducing from 235 pounds in January to 226 pounds currently, mostly through increased cardiovascular exercise, such as gym workouts and hiking. An echocardiogram performed in February of this year through Dr. Ram cardiology, showed septal wall thickening but was otherwise unremarkable. The patient is aware of the need to continue monitoring and managing his weight, which may impact the thickness of the septal wall. Losing weight will also help with prediabetes and elevated liver enzymes Labs are due to be done today Patient is to return in 6 months [facility] Medical History Hx of diarrhea Hx of fracture History of reduction of closed fracture LFT elevation Hypertension, essential Surgical History History of torn meniscus of knee Family History Father No problems noted. Mother Pancreatic cancer Sister No problems noted. Daughter No problems noted. Other Substance use disorder Social History Housing: House Alcohol intake: current Alcohol intake frequency: does not drink Patient Tobacco Use Status: Never used Tobacco e-Cigarette/Vaping Use: Never Used Second Hand Smoke Exposure: Yes (as a child) service: No Current occupational status: employed Cognitive needs: No Hearing needs: No Vision needs: No Questionnaire PHQ-9 Over the last 2 weeks, how often have you been bothered by any of the following problems? 1. Little interest or pleasure in doing things: not at all 2. Feeling down, depressed, or hopeless: not at all 3. Trouble falling or staying asleep, or sleeping too much: not at all 4. Feeling tired or having little energy: not at all 5. Poor appetite or overeating: not at all 6. Feeling bad about yourself - or that you are a failure or have let yourself or your family down: not at all 7. Trouble concentrating on things, such as reading the newspaper or watching television: not at all 8. Moving or speaking so slowly that other people could have noticed. Or the opposite - being so fidgety or restless that you have been moving around a lot more than usual: not at all 9. Thoughts that you would be better off or of hurting yourself in some way: not at all Total score: 0 Depression Screening Interpretation: Negative Depression Screening Done: Yes 60065 - PHQ-9 Billing: Yes Source: Developed by Drs. Brian Santos, Romana Carranza, Byron Kim and colleagues, with an educational grace from [employer]. Thrive Questionnaire Date Thrive assessed: 05/03/24 I am a: Patient What is your living situation today?: I have a steady place to live Within the past 12 months, did the food you bought not last and you didn't have the money to get more?: Never true Within the past 12 months, did you worry whether your food would run out before you got money to buy more?: Never true Do you have trouble paying for medicines?: No Do you have trouble getting transportation to medical appointments?: No Do you have trouble paying your heating and electricity bill?: No Do you have trouble taking care of your child, family member or friend?: No Do you have trouble with day-to-day activities such as bathing, preparing meals, shopping, managing finances, etc.?: No Are you currently unemployed and looking for a job?: No Are you interested in more education?: Yes Please select the resources that you would like help with: None Currently or been in a relationship where the following occur: No concerns reported THRIVE Score: 0 AUDIT C Alcohol Use Questionnaire (AUDIT-C) 1. How often do you have a drink containing alcohol?: 2-4 times a month 2. How many drinks containing alcohol do you have on a typical day when you are drinking?: 1 or 2 3. How often do you have six or more drinks on one occasion?: Never Total Score: 2 Score Reviewed/Action Taken: Yes COLLETTE-7 AMB Questionnaire COLLETTE-7 Date COLLETTE - 7 assessed: 05/03/24 Feeling nervous, anxious, or on edge: 0 = Not at all Not being able to stop or control worryin = Not at all Worrying too much about different things: 0 = Not at all Trouble relaxin = Not at all Being so restless that it is hard to sit still: 0 = Not at all Becoming easily annoyed or irritable: 0 = Not at all Feeling afraid as if something awful might happen: 0 = Not at all Total COLLETTE-7 score (0-4 normal; 5-9 mild; 10-14 moderate; 15-21 severe): 0 Source: Developed by Drs. Brian Santos, Romana Carranza, Byron Kim and colleagues, with an educational grace from [employer]. COLLETTE-7 Assessment Billing COLLETTE-7 Assessment Tool: COLLETTE-7 Assessment 86309 Review of Systems Const Denies chills and Denies fever(s) ENT Denies epistaxis and Denies nasal discharge Card Denies chest pain Resp Denies chest congestion, Denies cough and Denies hemoptysis GI Denies diarrhea and Denies nausea Skin/Breast Denies rash Neuro Reports no additional complaints Psych Reports no additional complaints Endo Reports no additional complaints Physical exam (Primary Care) Vital Signs: Last Vital Signs Pulse 62 05/03/24 09:53 BP 126/84 05/03/24 09:53 Pulse Ox 96 05/03/24 09:53 Oxygen Delivery Method Room Air 05/03/24 09:53 BMI result Body Mass Index 33.4 Tobacco/Smoking Status: Tobacco use Status Tobacco use date assessed 05/03/24 05/03/24 10:00 Patient Tobacco Use Status Never used Tobacco 05/03/24 10:00 e-Cigarette/Vaping Use Never Used 05/03/24 10:00 PHQ-9: PHQ-9 Score PHQ-9: Total score 0 05/03/24 10:00 Depression Screening Interpretation: Negative Thrive Assessment: Date of Thrive Assessment Date Thrive assessed 05/03/24 05/03/24 10:00 Currently or been in a relationship where the following occur: No concerns reported Const General: cooperative, comfortable and no acute distress Orientation/consciousness: patient oriented x3 HENMT Head: Yes normocephalic Eyes General: appearance normal, both eyes and all related structures Neck Neck: Yes supple Resp Effort & Inspection: normal respiratory effort, no cough and no stridor Cardio Rhythm: regular rhythm Heart sounds: S1 normal heart sound present and S2 normal heart sound present Skin General skin exam: turgor normal Neuro General: patient oriented x3, tone normal and moves all extremities Extrem Right lower extremity: no edema Left lower extremity: no edema Coding Level of Care Code Est Pt Level 4 (40146) Diagnoses Hypertension, essential I10 LFT elevation R79.89 Pre-diabetes R73.03 Class 1 obesity due to excess calories with serious comorbidity and body mass index (BMI) of 34.0 to 34.9 in adult E66.09; Z68.34 Body mass index: BMI 34.0-34.9 Obesity classification: adult class 1 (BMI 30 - 34.9) Serious obesity comorbidity presence: with serious comorbidity Additional Codes COLLETTE-7 Assessment Billing - COLLETTE-7 Assessment Tool: COLLETTE-7 Assessment 70202 ([id number]) PHQ-9 - 07474 - PHQ-9 Billing: Yes ([id number]) Assessment & Plan Assessment & Plan (1) Hypertension, essential: Code(s): I10 - Essential (primary) hypertension Category: Medical (2) LFT elevation: Code(s): R79.89 - Other specified abnormal findings of blood chemistry Category: Medical (3) Pre-diabetes: Code(s): R73.03 - Prediabetes Category: Medical (4) Obesity due to excess calories: Code(s): E66.09 - Other obesity due to excess calories Category: Medical Qualifiers: Body mass index: BMI 34.0-34.9 Obesity classification: adult class 1 (BMI 30 - 34.9) Serious obesity comorbidity presence: with serious comorbidity Qualified Code(s): E66.09 - Other obesity due to excess calories; Z68.34 - Body mass index [BMI] 34.0-34.9, adult Plan The patient is a 54-year-old male presenting for a six-month follow-up visit. He has a history of hypertension, which is well-controlled with Adenolol 50 mg. He reports no side effects from the medication. The patient has documented prediabetes and elevated liver enzymes, which are stable. He has managed to lose weight, reducing from 235 pounds in January to 226 pounds currently, mostly through increased cardiovascular exercise, such as gym workouts and hiking. An echocardiogram performed in February of this year through Dr. Leanna douglass, showed septal wall thickening but was otherwise unremarkable. The patient is aware of the need to continue monitoring and managing his weight, which may impact the thickness of the septal wall. Losing weight will also help with prediabetes and elevated liver enzymes Labs are due to be done today Patient is to return in 6 months Orders: Orders Hemoglobin A1c Today R73.03 - Prediabetes Comprehensive Met. Panel Today I10 - Essential (primary) hypertension, R73.03 - Prediabetes, R79.89 - Other specified abnormal findings of blood chemistry
== END 2024-05-03 11:08 | disposition home or self-care (01) ==
PROVIDERS: PCP Internal Medicine; Visit Provider Internal Medicine
DX: I10 Essential (primary) hypertension (principal); R79.89 Other specified abnormal findings of blood chemistry; R73.03 Prediabetes; E66.09 Other obesity due to excess calories; Z68.34 Body mass index [BMI] 34.0-34.9, adult

== ENCOUNTER 2024-09-27 08:58 | Outpatient (AMB) | payer OTHER, SELFPAY ==
--- NOTE | 2024-09-27 09:00 | A.OFFPC_ITS ---
Vital Signs 09/27/24 09:03 Height 5 ft 9 in Weight 239 lb 8 oz BMI 35.4 BP 128/80 Blood Pressure Location Rt brachial Position Sitting Respiration 17 Pulse 55 Pulse Source Pulse Oximeter Pulse Oximetry (%) 97 Oxygen Delivery Method Room Air Intake Visit Reasons: ENT Referral Allergies No Known Allergies Allergy (Verified 09/27/24 09:05) Medication List - Last Reconciled 09/27/24 by Favian Ignacio MD atenolol 50 mg PO DAILY 90 days Tobacco use date assessed: 09/27/24 Dental Screening Dental Screen Date: 09/27/24 Did you have a dental visit in the last 12 months?: No Did you have a dental problem in the last 6 months where you did not have access to dental care?: No Was dental information given to patient?: No HPI ENT Referral HPI Details Patient is a 54-year-old obese gentleman came in with concern about shortness a breath which he feels off and on however no relationship with activities and is feeling fine at this time There is no chest pains - The patient attributes episodes to ernesto ght, although no direct correlation with eating habits has been established. - Recent tick bite noted above. - Tick embedded as of yesterday despite no exposure to deep l[place]; the [place] - The wound nurse removed the tick, kiesha escobar left the area discolored (purple to black) and potentially at risk for infection. - History of chronic sinusitis sensation described as the left side of the head feeling full., cause difficulty sleeping sometimes requesting ENT referral - Symptoms are intermittent, at times al leviated with nasal sprays like Flonase, but patient continues to experience congestion, particularly at night. Problem List - Obesity - Episodic Shortness of Breath - Chronic Sinusitis - Recent Tick Bite - hypertension Patient Instructions - Continue taking atenolol 50 mg as pres cribed. - Monitor and record episodes of shortne ss of breath, especially noting associated activities or dietary habits. - Complete prescribed lab work prior to the next visit, ensuring they are fasting labs. - Follow ENT appointment instructions up on receiving a notification. - Begin a structured weight loss regimen : regular cardiovascular exercise and smaller meal portions. - Take the prescribed doxycycline for pr ophylactic management of the recent tick bite and monitor the area for signs of infection. - Return for follow-up in one month with documented episodes and adherence to exercise and diet recommendations. Review of Systems - General: No fever no chills - Neurological: No headaches no dizziness - Ear nose throat: No sore throat no hearing difficulty no ear pain - Cardiovascular: No syncope, no chest pain, no palpitations - Gastrointestinal: No nausea vomiting or diarrhea - Endocrine: No polyuria polydipsia no heat intolerance - Genitourinary: No dysuria , no blood in urine Physical Exam General: No acute distress HEENT: Left nostril congestion, possible sinus infection Neck: Supple Respiratory system: Shortness of breath noted, able to talk in full sentences, no audible wheeze Cardiovascular: S1-S2 regular in rate and rhythm Gastrointestinal: No pain Extremities: No new findings BEDSPREAD CUTTER: Alert awake oriented x3 motor sensory intact Skin: Tick bite site noted, redness present, possible cellulitis, under left arm, normal turgor PFSH Medical History Hx of diarrhea Hx of fracture History of reduction of closed fracture LFT elevation Hypertension, essential Surgical History History of torn meniscus of knee Family History Father No problems noted. Mother Pancreatic cancer Sister No problems noted. Daughter No problems noted. Other Substance use disorder Social History Housing: House Alcohol intake: current Alcohol intake frequency: does not drink Patient Tobacco Use Status: Never used Tobacco e-Cigarette/Vaping Use: Never Used Second Hand Smoke Exposure: Yes (as a child) service: No Current occupational status: employed Cognitive needs: No Hearing needs: No Vision needs: No Questionnaire PHQ-9 Over the last 2 weeks, how often have you been bothered by any of the following problems? 11600 - PHQ-9 Billing: Patient declined-do not bill Source: Developed by Drs. Brian Santos, Romana Carranza, Byron Kim and colleagues, with an educational grace from [employer] Thrive Questionnaire Date Thrive assessed: 09/27/24 I am a: Patient What is your living situation today?: I have a steady place to live Within the past 12 months, did the food you bought not last and you didn't have the money to get more?: Never true Within the past 12 months, did you worry whether your food would run out before you got money to buy more?: Never true Do you have trouble paying for medicines?: No Do you have trouble getting transportation to medical appointments?: No Do you have trouble paying your heating and electricity bill?: No Do you have trouble taking care of your child, family member or friend?: No Do you have trouble with day-to-day activities such as bathing, preparing meals, shopping, managing finances, etc.?: No Are you currently unemployed and looking for a job?: No Are you interested in more education?: Yes Please select the resources that you would like help with: None Currently or been in a relationship where the following occur: No concerns reported THRIVE Score: 0 AUDIT C Alcohol Use Questionnaire (AUDIT-C) 1. How often do you have a drink containing alcohol?: Monthly or less 2. How many drinks containing alcohol do you have on a typical day when you are drinking?: 1 or 2 3. How often do you have six or more drinks on one occasion?: Never Total Score: 1 Score Reviewed/Action Taken: Yes COLLETTE-7 AMB Questionnaire COLLETTE-7 Date COLLETTE - 7 assessed: 09/27/24 Feeling nervous, anxious, or on edge: 0 = Not at all Not being able to stop or control worryin = Not at all Worrying too much about different things: 0 = Not at all Trouble relaxin = Not at all Being so restless that it is hard to sit still: 0 = Not at all Becoming easily annoyed or irritable: 0 = Not at all Feeling afraid as if something awful might happen: 0 = Not at all Total COLLETTE-7 score (0-4 normal; 5-9 mild; 10-14 moderate; 15-21 severe): 0 Source: Developed by Drs. Brian Santos, Romana Carranza, Byron Kim and colleagues, with an educational grace from [employer] COLLETTE-7 Assessment Billing COLLETTE-7 Assessment Tool: COLLETTE-7 Assessment 42554 Physical exam (Primary Care) Vital Signs: Last Vital Signs Pulse 55 09/27/24 09:03 Resp 17 09/27/24 09:03 BP 128/80 04/15/25 09:03 Pulse Ox 97 09/27/24 09:03 Oxygen Delivery Method Room Air 09/27/24 09:03 BMI result Body Mass Index 35.4 Tobacco/Smoking Status: Tobacco use Status Tobacco use date assessed 09/27/24 09/27/24 09:05 Patient Tobacco Use Status Never used Tobacco 09/27/24 09:00 e-Cigarette/Vaping Use Never Used 09/27/24 09:00 Thrive Assessment: Date of Thrive Assessment Date Thrive assessed 09/27/24 09/27/24 09:05 Currently or been in a relationship where the following occur: No concerns reported Coding Level of Care Code Est Pt Level 4 (29394) Diagnoses Shortness of breath R06.02 Nasal congestion R09.81 Hypertension, essential I10 LFT elevation R79.89 Class 1 obesity due to excess calories with serious comorbidity and body mass index (BMI) of 34.0 to 34.9 in adult E66.09; Z68.34 Body mass index: BMI 34.0-34.9 Obesity classification: adult class 1 (BMI 30 - 34.9) Serious obesity comorbidity presence: with serious comorbidity Pre-diabetes R73.03 Additional Codes COLLETTE-7 Assessment Billing - COLLETTE-7 Assessment Tool: COLLETTE-7 Assessment 67715 ([id number]) Assessment & Plan Assessment & Plan (1) Shortness of breath: Code(s): R06.02 - Shortness of breath Category: Medical (2) Nasal congestion: Code(s): R09.81 - Nasal congestion Category: Medical (3) Hypertension, essential: Code(s): I10 - Essential (primary) hypertension Category: Medical (4) LFT elevation: Code(s): R79.89 - Other specified abnormal findings of blood chemistry Category: Medical (5) Obesity due to excess calories: Code(s): E66.09 - Other obesity due to excess calories Category: Medical Qualifiers: Body mass index: BMI 34.0-34.9 Obesity classification: adult class 1 (BMI 30 - 34.9) Serious obesity comorbidity presence: with serious comorbidity Qualified Code(s): E66.09 - Other obesity due to excess calories; Z68.34 - Body mass index [BMI] 34.0-34.9, adult (6) Pre-diabetes: Code(s): R73.03 - Prediabetes Category: Medical Plan Patient is a 54-year-old obese gentleman with a history of LFT elevation and prediabetes, came in with concern about shortness a breath which he feels off and on however no relationship with activities and is feeling fine at this time There is no chest pains - The patient attributes episodes to weight, although no direct correlation with eating habits has been established. - Recent tick bite noted above. - Tick embedded as of yesterday despite no exposure to deep l[place]; the patient [place] - The wound nurse removed the tick, which left the area discolored (purple to black) and potentially at risk for infection. - History of chronic sinusitis sensation described as the left side of the head feeling full., cause difficulty sleeping sometimes requesting ENT referral - Symptoms are intermittent, at times alleviated with nasal sprays like Flonase, but patient continues to experience congestion, particularly at night. Problem List - Obesity - Episodic Shortness of Breath - Chronic Sinusitis - Recent Tick Bite - hypertension Patient Instructions - Continue taking atenolol 50 mg as prescribed. - Monitor and record episodes of shortness of breath, especially noting associated activities or dietary habits. - Complete prescribed lab work prior to the next visit, ensuring they are fasting labs. - Follow ENT appointment instructions upon receiving a notification. - Begin a structured weight loss regimen: regular cardiovascular exercise and smaller meal portions. - Take the prescribed doxycycline for prophylactic management of the recent tick bite and monitor the area for signs of infection. - Return for follow-up in one month with documented episodes and adherence to exercise and diet recommendations. Orders: Orders Comprehensive [place]. Panel Fast Today E66.09 - Other obesity due to excess calories, I10 - Essential (primary) hypertension, R73.03 - Prediabetes, R79.89 - Other specified abnormal findings of blood chemistry, Z68.34 - Body mass index [BMI] 34.0-34.9, adult Complete Blood Count Auto Diff Today E66.09 - Other obesity due to excess calories, I10 - Essential (primary) hypertension, R73.03 - Prediabetes, R79.89 - Other specified abnormal findings of blood chemistry, Z68.34 - Body mass index [BMI] 34.0-34.9, adult Lipid Panel Today E66.09 - Other obesity due to excess calories, I10 - Essential (primary) hypertension, R73.03 - Prediabetes, R79.89 - Other specified abnormal findings of blood chemistry, Z68.34 - Body mass index [BMI] 34.0-34.9, adult TSH reflex Free T4 Today E66.09 - Other obesity due to excess calories, I10 - Essential (primary) hypertension, R73.03 - Prediabetes, R79.89 - Other specified abnormal findings of blood chemistry, Z68.34 - Body mass index [BMI] 34.0-34.9, adult Referrals Ear/Nose/Throat Referral R09.81 - Nasal congestion Medications: New doxycycline hyclate 100 mg PO BID 20 caps 0RF
[2024-09-27 09:03] VITALS: BP 128/80; PULSE 55; RESP 17; O2SAT 97; BMI 35.4
--- OUTSIDE RECORDS SUMMARY | 2024-09-27 09:29 | XMS_ITS | Clinical Summary ---
Author Organization [facility] Address [address] [place] [address] Phone Care Team Providers Care Doubler Helper Name Role Phone Favian Ignacio MD Primary Care Provider Immunizations Name Administration Dates Next Due COVID-19 (Pre-04/06) Pfizer Vaccine, mRNA, PF ,06/12/2020 Hepatitis B Adult 02/20/2020,01/20/2020 MMR 08/17/2020 Tdap 02/16/2019 Social History Tobacco Use Types Packs/Day Years Used Date Smoking Tobacco: Never Assessed Education Answer Date Recorded Are you interested in more education? Not on angelia e 10/11/2022 Are you concerned about learning? Not on file 10/11/2022 No 10/11/2022 No 10/11/2022 Digital Access Answer Date Recorded No 11/08/2022 No 11/08/2022 No 11/08/2022 Reliable internet access at home? Not on file 11/08/2022 Device with a working camera? Not on file Sex and Gender Information Value Date Recorded Sex Assigned at Not on file Gender Identity Not on file Sexual Orientation Not on file Plan of Treatment Health Maintenance Due Date Last Done Comments LIPID PANEL 1971 DEPRESSION SCREENING 1983 SMOKING Hx and SMOKELESS TOBACCO SCREENING 1984 HEPATITIS B SCREENING 1989 HEPATITIS C SCREENING 1989 HIV ONE-TIME SCREENING (18-6 5 YEARS) 1989 COLOGUARD 2016 COLONOSCOPY 2016 COLORECTAL CANCER SCREENING 2016 FIT TEST 2016 FOBT 2016 SIGMOIDOSCOPY 2016 VIRTUAL COLONOSCOPY 2016 HEPATITIS B VACCINES (3 of 3 - 19+ 3-dose series) 07/22/2020 02/20/2020, 01/20/2020 PNEUMOCOCCAL VACCINES (50+ years) (1 of 1 - PCV) 2021 ZOSTER VACCINES (1 of 2) 2021 INFLUENZA VACCINE (#1) 2024 COVID-19 VACCINE (3 - 2023-2 5 season) 2024 07/03/2020, 06/12/2020 Adult Td,Tdap Booster 02/16/2029 02/16/2019 HEPATITIS A VACCINES Aged Out No long er eligible based on patient's age to complete this topic HIB VACCINES Aged Out No longer eligi ble based on patient's age to complete this topic MENINGOCOCCAL VACCINES (ACWY) Aged Out No longer eligible based on patient's age to complete this topic Medical Devices Not on file Care Teams Doubler Helper Relationship Specialty Start Date End Date Favian Ignacio MD [facility] [place] [address] PCP - General Internal Medicine 09/27/20 Additional Source Comments The information contained in this document represents components of the legal health record. It is not the complete legal health record.[facility]
== END 2024-09-27 11:31 | disposition home or self-care (01) ==
PROVIDERS: PCP Internal Medicine; Visit Provider Internal Medicine
DX: R06.02 Shortness of breath (principal); R09.81 Nasal congestion; I10 Essential (primary) hypertension; R79.89 Other specified abnormal findings of blood chemistry; E66.09 Other obesity due to excess calories; Z68.34 Body mass index [BMI] 34.0-34.9, adult; R73.03 Prediabetes

== ENCOUNTER → 2024-09-27 08:58 | Outpatient (BNVA) | payer OTHER, SELFPAY | PROVIDERS: PCP Internal Medicine; Visit Provider Internal Medicine | DX: R06.02 Shortness of breath (principal); R09.81 Nasal congestion; I10 Essential (primary) hypertension; R79.89 Other specified abnormal findings of blood chemistry; E66.09 Other obesity due to excess calories; Z68.34 Body mass index [BMI] 34.0-34.9, adult; Z79.899 Other long term (current) drug therapy | CPT/HCPCS: 96127 ==